=== PATIENT | male | born 1990 | race Hispanic/Latino ===

== ENCOUNTER 2020-10-09 19:53 | Emergency (ER) | payer OTHER ==
[~2020-10-09] VITALS: Ht 172.7 cm; Wt 90.7 kg
[2020-10-09] MEDS ORDERED: AMITRIPTYLINE H50 MG PO (20:10)
[2020-10-09] MEDS ORDERED: LEXAPRO10 MG PO (20:10)
[2020-10-09] MEDS ORDERED: HYDROXYZINE HCL25 MG PO (20:11)
[2020-10-09] MEDS ORDERED: MINIPRESS1 MG PO (20:12)
[2020-10-09] MEDS ORDERED: VENTOLIN HFA18 GM INH (20:12)
[2020-10-09] MEDS ORDERED: ALLERGY RELIEF10 MG PO (20:13)
[2020-10-09] MEDS ORDERED: ALVESCO6.1 G1 INH (20:13)
[2020-10-09] MEDS ORDERED: LIPITOR20 MG PO (20:13)
[2020-10-09] MEDS ORDERED: DIFLUNISAL500 MG PO (20:14)
== END 2020-10-09 21:25 | disposition home or self-care (01) ==
LOC: ED 19:53
PROC: 0HQ1XZZ Repair Face Skin, External Approach (ICD-10-PCS; principal; 2020-10-09)
DX: S01.111A Laceration without foreign body of right eyelid and periocular area, initial encounter (principal); E78.5 Hyperlipidemia, unspecified; Z88.2 Allergy status to sulfonamides; Z79.899 Other long term (current) drug therapy; Y04.0XXA Assault by unarmed brawl or fight, initial encounter
CPT/HCPCS: 12013; 99283-25